=== PATIENT | female | born 1990 | race Two or more races ===

== ENCOUNTER 2023-06-07 11:54 | Emergency (ER) | payer OTHER ==
[2023-06-07 12:11] VITALS: BP 130/81; PULSE 84; RESP 18; TEMP 97.9; BMI 31.1
[2023-06-07] MEDS ORDERED: ONDANSETRON *ODT* 4 MG TABLET SL ONE (12:49)
[2023-06-07] MEDS ORDERED: ONDANSETRON *ODT* 4 MG TABLET ONE (13:00)
== END 2023-06-07 13:53 | disposition home or self-care (01) ==
LOC: JERFT 11:54
DX: R50.9 Fever, unspecified (principal); R11.2 Nausea with vomiting, unspecified; R05.9 Cough, unspecified; R63.0 Anorexia; B97.4 Respiratory syncytial virus as the cause of diseases classified elsewhere; Z20.822 Contact with and (suspected) exposure to COVID-19
CPT/HCPCS: 0241U-QW; 87651; 99283-25; Q0162

== ENCOUNTER 2024-07-23 18:40 | Emergency (ER) | payer BC, OTHER ==
[2024-07-23 18:50] VITALS: BP 134/99; PULSE 93; RESP 18; BMI 36.6
[2024-07-23] MEDS ORDERED: FAMOTIDINE 20 MG TABLET PO ONE (19:21)
[2024-07-23] MEDS ORDERED: FAMOTIDINE 20 MG TABLET ONE (19:24)
[2024-07-23] MEDS ORDERED: ONDANSETRON *ODT* 4 MG TABLET ONE (19:24)
[2024-07-23] MEDS: ONDANSETRON *ODT* 4 MG TABLET SL ONE (19:43)
[2024-07-23] MEDS ORDERED: FAMOTIDINE 20 MG/50 ML IVPB 20 MG/50 ML MG IVPB ONE (19:52)
[2024-07-23 20:10] LABS: THROAT:GRP A STREP NOT DETECTED (NOTDETECTED)
[2024-07-23] MEDS ORDERED: ONDANSETRON 4 MG/2 ML VIAL ONE (20:11)
[2024-07-23] MEDS: SODIUM CHLORIDE 0.9% 500 ML INFUS.BAG IV ONE (20:18)
[2024-07-23] MEDS: ONDANSETRON 4 MG/2 ML VIAL IVPUSH ONE (20:18)
[2024-07-23] MEDS: FAMOTIDINE 20 MG/50 ML IVPB 20 MG/50 ML MG IVPB ONE (20:18)
[2024-07-23 20:26] LABS: BASO % 0.3 % (0-2.0); EOS % 0.9 % (0-4.5); HEMATOCRIT 42.1 % (32.4-45.2); HEMOGLOBIN 13.4 GM/dL (10.7-15.3); LYMPH % 11.9 % (8-40); MCH 28.5 pg (25.7-33.7); MCHC 31.7 g/dl (32.0-36.0); MEAN CELL VOLUME 89.9 fl (80-96); MEAN PLT VOLUME 8.4 fl (7.5-11.1); MONO % 6.9 % (3.8-10.2); PLATELET COUNT 288 10^3/uL (134-434); RBC 4.69 M/mm3 (3.60-5.2); RDW 13.3 % (11.6-15.6); WHITE BLOOD COUNT 15.7 K/mm3 (4.0-10.0)
[2024-07-23 20:46] LABS: POTASSIUM 4.1 mmol/L (3.5-5.1)
[2024-07-23 20:47] LABS: CALCIUM 8.9 mg/dL (8.5-10.1)
[2024-07-23 20:48] LABS: ALBUMIN 3.7 g/dl (3.4-5.0); BLOOD UREA NITROGEN 19.7 mg/dL (7-18)
[2024-07-23 20:51] LABS: CREATININE 0.7 mg/dL (0.55-1.3)
[2024-07-23 20:53] LABS: BILIRUBIN,TOTAL 0.6 mg/dL (0.2-1)
[2024-07-23 21:22] LABS: PH,URINE 5.5 (5.0-8.0); URINE APPEARANCE CLEAR; URINE BILIRUBIN NEGATIVE (NEGATIVE); URINE COLOR YELLOW; URINE GLUCOSE (UA) NEGATIVE (NEGATIVE); URINE KETONE NEGATIVE (NEGATIVE); URINE LEUK ESTERASE NEGATIVE (NEGATIVE); URINE NITRITE NEGATIVE (NEGATIVE); URINE PROTEIN NEGATIVE (NEGATIVE); URINE UROBILINOGEN 0.2 mg/dL (0.2-1.0)
[2024-07-23 21:44] LABS: HIV INTERPRETATION NEGATIVE (NEGATIVE)
[2024-07-23] MEDS ORDERED: METOCLOPRAMIDE HCL INJECTION 10 MG/2 ML VIAL ONE (22:08)
[2024-07-23] MEDS: METOCLOPRAMIDE HCL INJECTION 10 MG/2 ML VIAL IVPUSH ONE (22:10)
[2024-07-23] MEDS ORDERED: PANTOPRAZOLE SODIUM 40 MG/100 ML BAG IVPB ONE (22:11)
[2024-07-23 22:34] VITALS: TEMP 99.2
[2024-07-23] MEDS: PANTOPRAZOLE SODIUM 40 MG VIAL IVPUSH ONE (22:43)
[2024-07-23] MEDS ORDERED: POTASSIUM CHLORIDE 10 MEQ in DEXTROSE 5%-NORMAL SALINE 1,000 ML IVPB SCH (23:00)
== END 2024-07-23 23:54 | disposition home or self-care (01) ==
LOC: JER 18:40
PROC: 3E033GC Introduction of Other Therapeutic Substance into Peripheral Vein, Percutaneous Approach (ICD-10-PCS; principal; 2024-07-23)
PROC: 3E033GC Introduction of Other Therapeutic Substance into Peripheral Vein, Percutaneous Approach (ICD-10-PCS; 2024-07-23)
PROC: 3E033GC Introduction of Other Therapeutic Substance into Peripheral Vein, Percutaneous Approach (ICD-10-PCS; 2024-07-23)
PROC: 3E033GC Introduction of Other Therapeutic Substance into Peripheral Vein, Percutaneous Approach (ICD-10-PCS; 2024-07-23)
DX: A08.4 Viral intestinal infection, unspecified (principal); R11.2 Nausea with vomiting, unspecified; R10.84 Generalized abdominal pain; Z20.822 Contact with and (suspected) exposure to COVID-19
CPT/HCPCS: 0241U-QW; 36415; 76700-TC; 80053; 81003; 84703; 85025; 86803; 87086; 87389; 87651; 99285-25; Q0162